=== PATIENT | female | born 1980 | race Caucasian/White ===

== ENCOUNTER 2021-07-11 05:44 | Emergency (ER) | payer SELFPAY ==
[~2021-07-11] VITALS: Ht 162.6 cm; Wt 100.0 kg
[~2021-07-11 05:44] MED LIST: CALCIUM600 M1 PO; CELEBREX 200MG200 MG PO; ESTRACE2 MG PO; FEOSOL45 MG PO; FLAGYL500 MG PO; FLONASEALLERGY NS; GLUCOPHAGE500 MG/TAB PO; LIPITOR 10MG10 MG PO; LIPITOR 80MG80 MG PO; LORTAB 5/500 501 TAB PO; MOTRIN 600600 MG/TAB PO; MULTIPLE VITAMI1 CAP PO; NAPROSYN500 MG PO; NORCO 325 MG-51 TAB PO; OMEGA-3 FISH1200 MG PO; PERCOCET 325 MG1 TA2; PERCOCET 325 MG1 TA2 PO; PROAIR HFA0.09 MG/AC IH; PROMETHAZINE12.5 M5 PO; VALTREX 50500 MG/TAB PO; VITAMIN A10k PO; VITAMIN B121000 MC2 SL; VITAMIN D32000 I1 PO; ZANTAC 150MG T150 MG PO; ZYRTEC 10MG10 MG PO; [UNRECOGNIZED DRUG - OTHER] PO
[2021-07-11 05:50] VITALS: TEMP 96.9
[2021-07-11 06:25] LABS: COLLECTION METHOD CLEAN CATCH
[2021-07-11 06:32] LABS: BASO # 0.1 (0.0-0.2); BASO % 0.6 % (0.0-2.0); EOS # 0.3 (0.0-0.7); EOS % 2.3 % (0-4.0); GRAN # 9.9 (1.4-6.5); GRAN % 69.9 % (42.2-75.2); HEMATOCRIT 38.9 % (37.0-47.0); HEMOGLOBIN 12.8 g/dl (12.5-16.0); LYMPH # 3.2 (1.2-3.4); LYMPH % 22.4 % (20.0-51.0); MEAN CELL VOLUME 86 fl (80.0-100.0); MEAN CORPUSCULAR HEMOGLOBIN 28 pg (27.0-31.0); MEAN CORPUSCULAR HGB CONC 33 g/dl (33.0-37.0); MEAN PLATELET VOLUME 10.5 fl (7.4-10.4); MONO # 0.6 (0.1-0.6); MONO % 4.1 % (1.7-9.3); PLATELET COUNT 328 K/mm3 (130-400); RED BLOOD COUNT 4.53 M/mm3 (4.10-5.30); REDCELL DISTRIBUTION WIDTH-CV 14.6 % (11.5-14.5)
[2021-07-11 06:33] LABS: MUCOUS Present /lpf; PH 7 (5-8); SQUAMOUS EPITHELIAL 0-2 /hpf; URINE APPEARANCE Clear; URINE BACTERIA None Seen /hpf; URINE BILIRUBIN Negative (NEGATIVE); URINE BLOOD 1+ (NEGATIVE); URINE COLOR Yellow; URINE GLUCOSE Negative (NEGATIVE); URINE KETONE Negative (NEGATIVE); URINE LEUKOCYTE ESTERASE Negative (NEGATIVE); URINE NITRATE Negative (NEGATIVE); URINE PROTEIN(semi-quant) 1+ (NEGATIVE); URINE UROBILINOGEN Negative (NEGATIVE)
[2021-07-11 06:46] LABS: ALBUMIN 4.4 gm/dL (3.5-5.0); BILIRUBIN,TOTAL 0.4 mg/dL (0.0-1.0); CALCIUM 9.3 mg/dL (8.4-10.2); CREATININE, serum 0.62 (0.52-1.25); POTASSIUM 4.4 mmol/L (3.4-5.0); TOTAL PROTEIN 7.1 gm/dL (6.4-8.2)
[2021-07-11 07:40] VITALS: PULSE 62
== END 2021-07-11 07:40 | disposition home or self-care (01) ==
LOC: COL.ER 05:44
PROVIDERS: Emergency Medicine
DX: R10.13 Epigastric pain (principal); R10.10 Upper abdominal pain, unspecified; E11.9 Type 2 diabetes mellitus without complications; F17.200 Nicotine dependence, unspecified, uncomplicated; Z90.711 Acquired absence of uterus with remaining cervical stump; Z79.84 Long term (current) use of oral hypoglycemic drugs
CPT/HCPCS: J0500; J2405; J3010; J7030; Q9967

== ENCOUNTER 2021-07-11 15:38 | Observation (INO) | payer SELFPAY ==
[~2021-07-11] VITALS: Ht 162.6 cm; Wt 97.7 kg
[2021-07-11 18:25] LABS: BASO # 0.1 (0.0-0.2); BASO % 0.4 % (0.0-2.0); EOS # 0.2 (0.0-0.7); EOS % 0.8 % (0-4.0); GRAN # 17.3 (1.4-6.5); HEMATOCRIT 41.7 % (37.0-47.0); HEMOGLOBIN 13.5 g/dl (12.5-16.0); LYMPH # 3.3 (1.2-3.4); LYMPH % 15.1 % (20.0-51.0); MEAN CELL VOLUME 88 fl (80.0-100.0); MEAN CORPUSCULAR HEMOGLOBIN 28 pg (27.0-31.0); MEAN CORPUSCULAR HGB CONC 32 g/dl (33.0-37.0); MEAN PLATELET VOLUME 10.6 fl (7.4-10.4); MONO # 0.9 (0.1-0.6); MONO % 4.2 % (1.7-9.3); PLATELET COUNT 347 K/mm3 (130-400); RED BLOOD COUNT 4.75 M/mm3 (4.10-5.30); REDCELL DISTRIBUTION WIDTH-CV 14.7 % (11.5-14.5)
[2021-07-11 18:32] LABS: ALBUMIN 4.7 gm/dL (3.5-5.0); BILIRUBIN,TOTAL 0.5 mg/dL (0.0-1.0); CALCIUM 9.5 mg/dL (8.4-10.2); CREATININE, serum 0.67 (0.52-1.25); POTASSIUM 3.9 mmol/L (3.4-5.0); TOTAL PROTEIN 8.2 gm/dL (6.4-8.2)
--- NOTE | 2021-07-11 22:00 | NUR ---
PATIENT WAS RECEIVED FROM ED ON A WHEELCAHIR.PATIENT IS BREATHING ON ROOM AIR.REPORTS PAIN AT 8 MEDS GIVEN PER MAR.PATIENT IS AOX4.PATIENT IS NPO.ADMISSION ORIENTATION WAS DONE.PATIENT IS INDEPENDENT IN THE ROOM.PATIENT SETTLED IN BED.NO OTHER NEEDS AT THIS TIME.
--- NOTE | 2021-07-11 22:00 | NUR ---
CONTACTED DR MOONEY PATIENT"S PAIN MEDS.DOCTOR ORDERED VIA TELEPHONE REEDBACK MORPHINE 1-4MG Q2 PRN,ZOSYN 4.45MG Q8AND LABS CMP CBC IN THE AM.SAME ORDERED.
[2021-07-11 23:56] VITALS: BP 106/59; PULSE 98; TEMP 100.7
[2021-07-12] VITALS (15 sets, daily range): BP systolic 90–129; BP diastolic 46–87; PULSE 62–96; TEMP 97.6–101
--- NOTE | 2021-07-12 00:30 | NUR ---
PHARMACY APPROVED MORPHINE 1MG.PHARMACY STATED THAT THE DOCTOR TO ORDER THE MEDICATION WITH A PAIN SCALE.
--- NOTE | 2021-07-12 03:28 | NUR ---
PATIENT HAS ELEVATED TEMP.DR NOTIFIED.ORDER PER DEC.
--- NOTE | 2021-07-12 04:56 | NUR ---
PATIENT IS REPORTING ABD PAIN.DENIES NAUSEA.IVFS ON GOOOD PROGRESS.NO OTHER NEEDS AT THIS TIME.
[2021-07-12 06:54] LABS: BASO # 0.1 (0.0-0.2); BASO % 0.3 % (0.0-2.0); EOS # 0.2 (0.0-0.7); EOS % 0.9 % (0-4.0); GRAN # 14.8 (1.4-6.5); GRAN % 73.2 % (42.2-75.2); HEMATOCRIT 37.8 % (37.0-47.0); LYMPH # 3.7 (1.2-3.4); LYMPH % 18.3 % (20.0-51.0); MEAN CELL VOLUME 88 fl (80.0-100.0); MEAN CORPUSCULAR HEMOGLOBIN 28 pg (27.0-31.0); MEAN CORPUSCULAR HGB CONC 32 g/dl (33.0-37.0); MEAN PLATELET VOLUME 10.9 fl (7.4-10.4); MONO # 1.3 (0.1-0.6); MONO % 6.6 % (1.7-9.3); PLATELET COUNT 303 K/mm3 (130-400); RED BLOOD COUNT 4.29 M/mm3 (4.10-5.30); REDCELL DISTRIBUTION WIDTH-CV 14.8 % (11.5-14.5)
[2021-07-12 07:12] LABS: ALBUMIN 3.8 gm/dL (3.5-5.0); BILIRUBIN,TOTAL 0.8 mg/dL (0.0-1.0); CALCIUM 8.7 mg/dL (8.4-10.2); CREATININE, serum 0.74 (0.52-1.25); POTASSIUM 3.8 mmol/L (3.4-5.0); TOTAL PROTEIN 6.8 gm/dL (6.4-8.2)
--- NOTE | 2021-07-12 09:38 | NUR ---
SW met with the patient to discuss discharge plan. The patient lives in [place] with her adult son, Parker, and her three teenage children. She states that Parker is watching her teenagers while she is here. She reports independence with ADLs and has a cane, if needed. The patient's PCP is Dr. Riccardo Ellis and she receives her medications at [facility] in . She states that she will want to switch to a closer pharamacy. The patient confirms she is self pay. She reports that she works at [employer] in [place] and that her insurance coverage will start at the beginning of July. Financial Counseling has been consulted. The patient does not have a DPOA-HC in EMR. The patient has her boyfriend, Benjie (ph#[phone]), listed as her person to notify. The patient plans to return home with her children upon discharge. No additional needs at this time. *Discharge plan: home with children*
--- NOTE | 2021-07-12 10:12 | NUR ---
Patient alert and oriented, answers questions appropriately. See assessment. Abdomen soft, tender, non distended. Bowel sounds active x4 quads. +Flatus. NPO since last night. No c/o at this time.
--- NOTE | 2021-07-12 17:20 | NUR ---
Patient to surgery with surgical staff at this time.
--- NOTE | 2021-07-12 19:30 | NUR ---
Arrived to room from post op, awake, alert, oriented x 4, respirations even and unlabored, diaphoretic, c/o being hot, admits to menopause, O2@3L per NC in use per baseline, VS stable, SCDs on, abodmem soft with 5 lap sites with bandaids c/d/i, patient c/o being hungry, updated on diet, started with jello and applesauce to see if tolerates diet, patient tolerated diet w/o nausea - sandwich box given ate 100%, no s/s of hypo/hyper glycemia noted, will continue to monitor.
--- NOTE | 2021-07-12 20:50 | NUR ---
Called call or contact centre coach surgical MD, Dr. Xavier re: clarification for IV fluids, D/C all IV fluids when tolerating Po. Updated patient on plan of care.
--- NOTE | 2021-07-12 22:07 | NUR ---
Call placed to Dr. Xavier re: hypotension - no new orders, continue to monitor.
[2021-07-13 03:40] VITALS: BP 90/48; PULSE 54; TEMP 97.5
[2021-07-13 06:59] LABS: BASO # 0.1 (0.0-0.2); BASO % 0.3 % (0.0-2.0); GRAN # 16.3 (1.4-6.5); GRAN % 83.8 % (42.2-75.2); HEMATOCRIT 37.6 % (37.0-47.0); HEMOGLOBIN 11.9 g/dl (12.5-16.0); LYMPH # 2.3 (1.2-3.4); LYMPH % 11.6 % (20.0-51.0); MEAN CELL VOLUME 88 fl (80.0-100.0); MEAN CORPUSCULAR HEMOGLOBIN 28 pg (27.0-31.0); MEAN CORPUSCULAR HGB CONC 32 g/dl (33.0-37.0); MONO # 0.7 (0.1-0.6); MONO % 3.4 % (1.7-9.3); PLATELET COUNT 286 K/mm3 (130-400); RED BLOOD COUNT 4.26 M/mm3 (4.10-5.30); REDCELL DISTRIBUTION WIDTH-CV 15.1 % (11.5-14.5)
[2021-07-13 08:03] VITALS: BP 100/58; PULSE 58; TEMP 98.2
--- NOTE | 2021-07-13 09:03 | NUR ---
Initial visit; Patient thanked Senior Business Development Manager for looking in on her and offering God's blessings.
--- NOTE | 2021-07-13 10:00 | NUR ---
Patient alert and oriented, answers questions appropriately. See assessment. Abdomen soft, tender, non distended. Bowel sounds active x4 quads. +Flatus. +Bowel movement. Lap sites to abdomen with edges well approximated, no redness or drainage noted. Post op exercises reviewed with patient, no c/o at this time.
[2021-07-13 12:05] VITALS: BP 101/62; PULSE 60; TEMP 97.6
[2021-07-13 16:13] VITALS: BP 110/54; PULSE 58; TEMP 98
[2021-07-13] MEDS ORDERED: AMOXICILLIN 8751 TAB PO (18:05)
[2021-07-13] MEDS ORDERED: NORCO 325 MG-51 TAB PO (18:05)
--- NOTE | 2021-07-13 18:58 | NUR ---
Discharge instructions reviewed with patient, verbalized understanding. Discharged via wheelchair to auto/home with family at 1825.
== END 2021-07-13 16:25 | disposition home or self-care (01) ==
LOC: COL.ER 15:38 → SURG 19:01 → EDBEDREQ 20:10 → SURG 07-13 16:25
PROVIDERS: Personal Emergency Response Attendant; ADMIT Surgery
DX: K80.00 Calculus of gallbladder with acute cholecystitis without obstruction (principal); J45.909 Unspecified asthma, uncomplicated; E11.42 Type 2 diabetes mellitus with diabetic polyneuropathy; G47.33 Obstructive sleep apnea (adult) (pediatric); D50.9 Iron deficiency anemia, unspecified; F41.9 Anxiety disorder, unspecified; F32.9 Major depressive disorder, single episode, unspecified; F17.210 Nicotine dependence, cigarettes, uncomplicated; Z90.710 Acquired absence of both cervix and uterus; Z90.721 Acquired absence of ovaries, unilateral; Z79.84 Long term (current) use of oral hypoglycemic drugs; Z79.899 Other long term (current) drug therapy; Z99.89 Dependence on other enabling machines and devices
CPT/HCPCS: G0378; J0690; J1100; J1170; J1815; J1885; J2270; J2405; J2543; J2704; J3010; J3480; J7030

== ENCOUNTER 2021-12-05 11:33 | Emergency (ER) | payer BC ==
[~2021-12-05] VITALS: Ht 162.6 cm; Wt 103.6 kg
[~2021-12-05 11:33] MED LIST changes: +AMOXICILLIN 8751 TAB PO
[2021-12-05 11:48] VITALS: TEMP 97.8
[2021-12-05 13:15] VITALS: BP 131/79; PULSE 73
== END 2021-12-05 13:23 | disposition home or self-care (01) ==
LOC: COL.ER 11:33
DX: G43.909 Migraine, unspecified, not intractable, without status migrainosus (principal); E11.9 Type 2 diabetes mellitus without complications; Z79.84 Long term (current) use of oral hypoglycemic drugs
CPT/HCPCS: J0780; J1200; J1885